=== PATIENT | female | born 1970 | race Two or more races ===

== ENCOUNTER 2024-02-10 11:38 | Emergency (ER) | payer BC, MEDICAID ==
[~2024-02-10] VITALS: Ht 180.3 cm; Wt 74.3 kg
[2024-02-10 12:13] LABS: Basophils # (auto) 0.1 10 ^3/uL (0-0.2); Basophils % (auto) 1.3 % (0.0-2.0); Eosinophils # (auto) 0.2 10 ^3/uL (0-0.8); Eosinophils % (auto) 2.4 % (0.0-7.0); Hematocrit 42.7 % (36.0-46.0); Lymphocytes # (auto) 1.5 10 ^3/uL (0.4-5.4); Lymphocytes % (auto) 24.3 % (10.0-50.0); Mean Corpuscular Hemoglobin 29.6 pg (28.0-32.0); Mean Corpuscular Hgb Conc. 32.9 g/dL (32.0-36.0); Mean Corpuscular Volume 89.8 fL (80.0-100.0); Monocytes # (auto) 0.5 10 ^3/uL (0-1.3); Monocytes % (auto) 8.5 % (0.0-12.0); Neutrophils % (auto) 63.5 % (37.0-80.0); Nucleated Red Blood Cells % 0.1 %; Red Blood Cells 4.75 10^6/uL (4.0-5.20); Red Cell Distribution Width 13.8 % (11.8-14.3); White Blood Cell 6.3 10^3/uL (4.4-10.8)
[2024-02-10 12:28] LABS: Alanine Aminotransferase 26 U/L (7-40); Albumin 4.1 g/dL (3.2-4.8); Alkaline Phosphatase 81 U/L (46-116); Anion Gap 3 (5-15); Aspartate Aminotransferase 20 U/L (13-40); BUN/Creatinine Ratio 9.8 (10.0-20.0); Blood Urea Nitrogen 6 mg/dL (9-23); Calcium 9.2 mg/dL (8.7-10.4); Carbon Dioxide 30 mmol/L (20-30); Chloride 105 mmol/L (98-107); Glucose 96 mg/dL (74-106); Lipase 35 U/L (12-53); Potassium 3.8 mmol/L (3.5-5.1); Sodium 138 mmol/L (136-145); Total Protein 7.1 g/dL (5.7-8.2)
[2024-02-10 13:13] LABS: Urine Bacteria FEW /hpf (None Seen); Urine Blood Negative /uL (Negative); Urine Budding Yeast OCCASIONAL /hpf (None Seen); Urine Clarity Clear (Clear); Urine Color Light-Yellow (Yellow); Urine Protein, UAD Negative (Negative); Urine Urobilinogen Normal (Negative); Urine WBC 1 /hpf (0 - 5); Urine pH 7.5 (5.0-9.0)
[2024-02-10] MEDS: PANTOPRAZOLE 40 MG TAB PO ONE (13:54)
[2024-02-10] MEDS: ONDANSETRON ODT 4 MG TAB PO ONE (13:57)
[2024-02-10] MEDS ORDERED: ZOFR4T PO (14:15)
[2024-02-10] MEDS ORDERED: PANT40TA2 PO (14:15)
[2024-02-10 14:37] VITALS: BP 161/73; PULSE 67; RESP 18; O2SAT 98
== END 2024-02-10 14:40 | disposition home or self-care (01) ==
LOC: ER 11:51
DX: K29.00 Acute gastritis without bleeding (principal); F41.9 Anxiety disorder, unspecified; I10 Essential (primary) hypertension; Z88.8 Allergy status to other drugs, medicaments and biological substances
CPT/HCPCS: 36415; 76705; 80053; 81001; 83690; 85025; Q0162

== ENCOUNTER 2024-02-12 14:35 | Inpatient (IN) | payer BC ==
[~2024-02-12] VITALS: Ht 165.1 cm; Wt 77.4 kg
[~2024-02-12 14:35] MED LIST: PANT40TA2 PO; ZOFR4T PO
[2024-02-12] MEDS: PANTOPRAZOLE 40 MG/10 ML VIAL INJ IV ONE (15:45)
[2024-02-12] MEDS: SODIUM CHLORIDE 0.9% 1,000 ML IVB ONE (15:45)
[2024-02-12 16:21] LABS: Basophils # (auto) 0.1 10 ^3/uL (0-0.2); Basophils % (auto) 0.9 % (0.0-2.0); Eosinophils # (auto) 0.1 10 ^3/uL (0-0.8); Eosinophils % (auto) 1.8 % (0.0-7.0); Hematocrit 44.4 % (36.0-46.0); Hemoglobin 14.5 g/dL (12.2-16.2); Lymphocytes # (auto) 1.8 10 ^3/uL (0.4-5.4); Lymphocytes % (auto) 22.1 % (10.0-50.0); Mean Corpuscular Hemoglobin 29.4 pg (28.0-32.0); Mean Corpuscular Hgb Conc. 32.7 g/dL (32.0-36.0); Mean Corpuscular Volume 89.8 fL (80.0-100.0); Monocytes # (auto) 0.7 10 ^3/uL (0-1.3); Monocytes % (auto) 8.4 % (0.0-12.0); Neutrophils # (auto) 5.4 10 ^3/uL (1.6-8.6); Neutrophils % (auto) 66.8 % (37.0-80.0); Red Blood Cells 4.94 10^6/uL (4.0-5.20); Red Cell Distribution Width 13.9 % (11.8-14.3); White Blood Cell 8.1 10^3/uL (4.4-10.8)
[2024-02-12 16:38] LABS: Chloride 103 mmol/L (98-107); Potassium 4.4 mmol/L (3.5-5.1); Sodium 137 mmol/L (136-145)
[2024-02-12 16:39] LABS: Anion Gap 4 (5-15); Calcium 9.5 mg/dL (8.7-10.4); Carbon Dioxide 30 mmol/L (20-30)
[2024-02-12 16:44] LABS: BUN/Creatinine Ratio 11.6 (10.0-20.0); Blood Urea Nitrogen 8 mg/dL (9-23); Glucose 107 mg/dL (74-106)
[2024-02-12] MEDS ORDERED: DOCUSATE SOD 100 MG CAP PO PRN ×2 (19:00→19:15)
[2024-02-12] MEDS ORDERED: HYDROcodone-ACET 5/325MG TAB PO PRN ×2 (19:00→19:15)
[2024-02-12] MEDS ORDERED: MORPHINE SULFATE INJ 2 MG/ml SYRG IV PRN (19:00)
[2024-02-12] MEDS ORDERED: TEMAZEPAM 15 MG CAP PO PRN ×2 (19:00→19:15)
[2024-02-12] MEDS ORDERED: NITROGLYCERIN 0.4 MG SL TAB SL PRN ×2 (19:00→19:15)
[2024-02-12] MEDS ORDERED: ONDANSETRON HCL 4 MG/2 ML VIAL IV PRN ×2 (19:00→19:15)
[2024-02-12] MEDS ORDERED: ACETAMINOPHEN 325 MG TAB PO PRN ×2 (19:00→19:15)
[2024-02-12] MEDS ORDERED: SODIUM CHLORIDE 0.9% 1,000 ML IV SCH (19:00)
[2024-02-12] MEDS ORDERED: VENL150C58 PO (19:12)
[2024-02-12] MEDS ORDERED: AMIT25TA20 PO (19:12)
[2024-02-12] MEDS ORDERED: MORPHINE SULFATE 4 MG/ML SYR/VIAL IV PRN (20:45)
[2024-02-12] MEDS: SODIUM CHLORIDE 0.9% 1,000 ML IV SCH (21:25)
[2024-02-12] MEDS ORDERED: ASCORBIC ACID 500 MG TAB PO SCH (22:00)
[2024-02-12] MEDS: ASCORBIC ACID 500 MG TAB PO SCH (22:26)
[2024-02-13] VITALS (7 sets, daily range): BP systolic 110–154; BP diastolic 59–82; PULSE 51–90; RESP 18–22; TEMP 96.6–98.6; O2SAT 96–99
[2024-02-13 06:26] LABS: Basophils # (auto) 0.1 10 ^3/uL (0-0.2); Basophils % (auto) 0.8 % (0.0-2.0); Eosinophils # (auto) 0.3 10 ^3/uL (0-0.8); Hematocrit 38.9 % (36.0-46.0); Lymphocytes # (auto) 2.4 10 ^3/uL (0.4-5.4); Lymphocytes % (auto) 25.4 % (10.0-50.0); Mean Corpuscular Hemoglobin 29.9 pg (28.0-32.0); Mean Corpuscular Hgb Conc. 33.4 g/dL (32.0-36.0); Mean Corpuscular Volume 89.5 fL (80.0-100.0); Monocytes # (auto) 0.9 10 ^3/uL (0-1.3); Monocytes % (auto) 9.2 % (0.0-12.0); Neutrophils # (auto) 5.7 10 ^3/uL (1.6-8.6); Neutrophils % (auto) 61.6 % (37.0-80.0); Nucleated Red Blood Cells % 0.1 %; Red Blood Cells 4.35 10^6/uL (4.0-5.20); Red Cell Distribution Width 13.6 % (11.8-14.3); White Blood Cell 9.3 10^3/uL (4.4-10.8)
[2024-02-13 06:47] LABS: Alanine Aminotransferase 24 U/L (7-40); Albumin 3.8 g/dL (3.2-4.8); Alkaline Phosphatase 71 U/L (46-116); Anion Gap 5 (5-15); Aspartate Aminotransferase 20 U/L (13-40); BUN/Creatinine Ratio 8.2 (10.0-20.0); Bilirubin, Total 1.1 mg/dL (0.2-1.0); Blood Urea Nitrogen 5 mg/dL (9-23); Calcium 8.6 mg/dL (8.5-10.1); Carbon Dioxide 28 mmol/L (20-30); Chloride 106 mmol/L (98-107); Glucose 86 mg/dL (74-106); Potassium 3.5 mmol/L (3.5-5.1); Sodium 139 mmol/L (136-145); Total Protein 6.1 g/dL (5.7-8.2)
[2024-02-13] MEDS: ZINC SULFATE 220mg CAP or TAB PO SCH (08:42)
[2024-02-13] MEDS: MULTIPLE VITAMIN TAB PO SCH (08:43)
[2024-02-13] MEDS ORDERED: OMNIPAQUE 12mg/ml 500ml ORAL SOLUTION PO ONE (08:48)
[2024-02-13] MEDS: PANTOPRAZOLE 40 MG/10 ML VIAL INJ IV SCH (08:49)
[2024-02-13] MEDS: MAALOX PLUS or MAALOX 30 ML PO ONE (08:55)
[2024-02-13] MEDS ORDERED: PANTOPRAZOLE 40 MG/10 ML VIAL INJ IV SCH ×2 (10:00)
[2024-02-13] MEDS ORDERED: MULTIPLE VITAMIN TAB PO SCH (10:00)
[2024-02-13] MEDS ORDERED: ZINC SULFATE 220mg CAP or TAB PO SCH (10:00)
[2024-02-13] MEDS ORDERED: IOHEXOL 300 MG/ML 100ML BOTTLE IJ ONE (12:19)
[2024-02-13] MEDS: SUCRALFATE 1 GM/10 ML ORAL SUSP GT SCH (12:21)
[2024-02-13] MEDS ORDERED: AMITRIPTYLINE HCL 25 MG TAB PO SCH (22:00)
[2024-02-14] MEDS ORDERED: VENLAFAXINE HCL 37.5mg XR cap PO SCH (10:00)
== END 2024-02-13 20:20 | disposition home or self-care (01) | DRG 392 ==
LOC: ER 14:35 → TELE 19:02 → ER 19:02 → TELE-WESTW 02-13 02:48
PROVIDERS: ADMIT Internal Medicine; ATTEND Internal Medicine
DX: K29.00 Acute gastritis without bleeding (principal); K80.20 Calculus of gallbladder without cholecystitis without obstruction; F41.9 Anxiety disorder, unspecified; I10 Essential (primary) hypertension; K21.9 Gastro-esophageal reflux disease without esophagitis; Z88.8 Allergy status to other drugs, medicaments and biological substances; Z79.899 Other long term (current) drug therapy; Z91.199 Patient's noncompliance with other medical treatment and regimen due to unspecified reason
CPT/HCPCS: 36415; 74177; 80048; 80053; 85025; C9113; G0378